=== PATIENT | male | born 2005 | race Caucasian/White ===

== ENCOUNTER 2024-02-11 07:37 | Emergency (ER) | payer OTHER ==
[~2024-02-11] VITALS: Ht 170.2 cm; Wt 99.8 kg
[2024-02-11 07:51] VITALS: BP 153/99; PULSE 103; RESP 20; TEMP 97.3; O2SAT 99
[2024-02-11] MEDS: buprenorphine HCL 2 MG sublingual tab SL ONE ×3 (08:17→09:54)
[2024-02-11] MEDS: NACL 0.9% 1,000 ML IV ONE (08:57)
[2024-02-11] MEDS: ONDANSETRON 4 MG/2 ML VIAL IVP ONE (09:01)
[2024-02-11] MEDS ORDERED: BUPR1FIL2 SL (10:40)
[2024-02-11 10:55] VITALS: BP 145/92; PULSE 69; RESP 15; TEMP 98; O2SAT 100
== END 2024-02-11 10:55 | disposition home or self-care (01) ==
LOC: MED 07:37
DX: F11.13 Opioid abuse with withdrawal (principal); R03.0 Elevated blood-pressure reading, without diagnosis of hypertension; Z88.5 Allergy status to narcotic agent; Z79.899 Other long term (current) drug therapy
CPT/HCPCS: 96361; 96374; 99283; J2405; J7030